=== PATIENT | male | born 1995 | race African-American/Black ===

== ENCOUNTER 2022-04-15 21:12 | Emergency (ER) | payer OTHER, SELFPAY ==
--- NOTE | ~2022-04-15 | XR_ITS ---
EXAMINATION: XR chest 2V DATE: 04/15/2022 21:37 INDICATION: Cough. Chest pain. TECHNIQUE: Frontal and lateral views of the chest were obtained. COMPARISON: None. FINDINGS: The chest demonstrates clear lungs without pneumonia, pleural effusion, or pneumothorax. Th e heart size is normal. IMPRESSION: 1. No acute cardiopulmonary disease. Reviewed, dictated and finalized at location A.
[2022-04-15 21:16] VITALS: BP 116/94; PULSE 95; RESP 16; TEMP 36.4; O2SAT 99
--- NOTE | 2022-04-15 21:19 | ECG_ITS ---
Measurements Intervals Russell Rate: 89 P: 55 MD: 149 QRS: 70 QRSD: 81 T: 6 QT: 329 QTc: 402 Interpretive Statements SINUS RHYTHM POSSIBLE RIGHT VENTRICULAR CONDUCTION DELAY [RSR (QR) IN V1/V2] EARLY REPOLARIZATION NO PREVIOUS ECG AVAILABLE FOR COMPARISON Electronically Signed On 04-16-2022 15:05:39 CDT by Stephani Whitlock M.D.
--- NOTE | 2022-04-15 22:20 | ED.SOB ---
HPI - SOB/Dyspnea General Chief Complaint: Shortness of Breath/Dyspnea Stated Complaint: coughing a lot Time Seen by Provider: 04/15/22 22:07 History of Present Illness HPI Narrative: 27-year-old male presents the emergency room for evaluation of a cough that has had for over 3 weeks. Patient states its a nonproductive cough and is worse at night. Patient was seen at the [facility] clinic 2 weeks ago was given cough syrup which alleviated his cough temporarily. Patient denies any shortness of breath, difficulty breathing or chest pain. Denies any wheezing. Related Data Allergies Allergy/AdvReac Type Severity Reaction Status Date / Time No Known Allergies Allergy Verified 04/15/22 21:13 Review of Systems Review of Systems: CONSTITUTIONAL: Denies fever, chills, or sweats. EYES: Denies visual changes, redness, or discharge. ENT: Denies rhinorrhea, congestion, sore throat, or otalgia. CARDIOVASCULAR: Denies chest pain, palpitations, or edema. RESPIRATORY: Reports cough GASTROINTESTINAL: Denies abdominal pain, nausea, vomiting, or diarrhea. GENITOURINARY: Denies dysuria or hematuria. SKIN: Denies rash or itching. MUSCULOSKELETAL: Denies back pain, joint pain, or myalgia. NEUROLOGIC: Denies headache, numbness, dizziness, or weakness. PSYCHIATRIC: Denies anxiety or depression. Exam Narrative: GENERAL: Well-appearing, well-nourished, no physical limitations, and in no acute distress. HEAD: Normocephalic, atraumatic. EYES: Conjunctivae normal, PERRLA and EOMI. ENT: External nose normal, Nares clear, no rhinorrhea or epistaxis. Mucous membranes moist. Oropharynx without tonsillar hypertrophy exudate or other lesions. External ears normal, bilateral TMs normal bilaterally NECK: Supple. No adenopathy or masses. No carotid bruits or JVD CHEST: Clear to auscultation. No respiratory distress. No wheezes rales or rhonchi. No tenderness. HEART: Regular rate and rhythm. No murmur heard. Normal peripheral pulses. EXTREMITIES: Normal range of motion. No edema. No clubbing or cyanosis SKIN: Warm, dry, no rash. No noted wounds NEURO: No focal deficits. Alert and oriented x3. MAEW. CN's II-XI intact bilaterally, normal gait PSYCH: Cooperative. Normal mood and affect. Course Vital Signs Vital signs: Vital Signs Temperature 36.4 C 04/15/22 21:16 Pulse Rate 95 04/15/22 21:16 Respiratory Rate 16 04/15/22 21:16 Blood Pressure 116/94 H 04/15/22 21:16 Pulse Oximetry 99 04/15/22 21:16 Oxygen Delivery Room Air 04/15/22 21:16 Temperature 36.4 C 04/15/22 21:16 Pulse Rate 95 04/15/22 21:16 Respiratory Rate 16 04/15/22 21:16 Blood Pressure 116/94 H 04/15/22 21:16 Pulse Oximetry 99 04/15/22 21:16 Oxygen Delivery Room Air 04/15/22 22:17 MDM - SOB/Dyspnea Imaging Data My impression: CXR: No active cardiopulmonary disease Discharge Plan Discharge Clinical Impression: Cough Patient Disposition: Home, Self-Care Condition: Stable Instructions: Antibiotic Form, Acute Cough (ED) Prescriptions: New promethazine-DM 6.25-15 mg/5 mL syrup 5 ml PO Q4-6H PRN (Reason: cough) Qty: 118 0RF albuterol sulfate 90 mcg/actuation HFA aerosol inhaler 2 puff inhalation QID Qty: 6.7 0RF Follow-up/Referrals: PHYSICIAN NOT ON STAFF,NONSTAFF [Primary Care Provider] - Time of Disposition: 22:23
== END 2022-04-15 22:39 | disposition home or self-care (01) ==
PROVIDERS: Emergency Provider Nurse Practitioner Family; PCP Family Medicine
DX: R05.9 Cough, unspecified (principal)
CPT/HCPCS: 71046; 93005; 99283

== ENCOUNTER 2023-11-05 18:57 | Emergency (ER) | payer OTHER, SELFPAY ==
[2023-11-05 19:10] VITALS: BP 148/83; PULSE 86; RESP 20; TEMP 36.8; O2SAT 98
[2023-11-05 20:59] LABS: Influenza A QL RT-PCR Negative (Negative); Influenza B QL RT-PCR Negative (Negative); RSV RNA, RT-PCR Negative (Negative); SARS-CoV-2 RNA PCR Negative (Negative)
--- NOTE | 2023-11-05 21:43 | ED.GENADULT ---
HPI - General Adult General Chief complaint: Upper Respiratory Infection Stated complaint: coughing Time Seen by Provider: 11/05/23 20:33 Source: patient Mode of arrival: ambulatory Limitations: no limitations History of Present Illness HPI narrative: This is a 28-year-old male who presents to the ED with chief complaint of chest tightness and cough for the past several weeks. Reports the cough has been persistent and dry. States he has chest tightness with the cough but does not have any chest pain. Denies shortness of breath, fevers or chills. He is mentally a bronchitis but does not seem to be getting much better. Denies any further complaints. Related Data Allergies Allergy/AdvReac Type Severity Reaction Status Date / Time No Known Allergies Allergy Verified 11/05/23 20:13 Review of Systems Review of Systems: All systems as dictated in HPI Exam Narrative: GENERAL: Well-appearing, well-nourished, and in no acute distress. HEAD: Normocephalic, atraumatic. EYES: PERRLA and EOMI. ENT: Nares clear, no rhinorrhea or epistaxis. Mucous membranes moist. Oropharynx without tonsillar hypertrophy exudate or other lesions. NECK: Supple. No adenopathy or masses. CHEST: No respiratory distress. Clear to auscultation. No wheezes rales or rhonchi HEART: Regular rate and rhythm. No murmur heard. Normal peripheral pulses. ABDOMEN: Soft, nontender, nondistended, normal active bowel sounds. MSK: Normal range of motion. No edema. SKIN: Warm, dry, no rash. NEURO: Alert and oriented x3. No focal deficits. PSYCH: Normal mood and affect. Course Vital Signs Vital signs: Vital Signs Temperature 98.3 F 11/05/23 19:10 Pulse Rate 86 11/05/23 19:10 Respiratory Rate 20 11/05/23 19:10 Blood Pressure 148/83 H 11/05/23 19:10 Pulse Oximetry 98 11/05/23 19:10 Oxygen Delivery Room Air 11/05/23 19:10 Temperature 98.3 F 11/05/23 19:10 Pulse Rate 77 11/05/23 21:55 Respiratory Rate 16 11/05/23 21:55 Blood Pressure 135/94 H 11/05/23 21:55 Pulse Oximetry 100 11/05/23 21:55 Oxygen Delivery Room Air 11/05/23 20:11 Medical Decision Making MDM Narrative Medical decision making narrative: This is a 28-year-old male presents to the ED with chief complaint cough and chest tightness the past 2 weeks. Vitals are normal. Exam is benign. Viral swabs are negative. Offered EKG and chest x-ray for the chest tightness but patient declines at this point. We have agreed to treat this as continued bronchitis. We will try another course of steroids and albuterol. Pt will be discharged in stable condition. Return precautions given and supportive measures discussed. Pt is understanding and agreeable with plan for discharge and follow-up with PCP. Vital Signs Vital Signs: Vital Signs Temperature 98.3 F 11/05/23 19:10 Pulse Rate 86 11/05/23 19:10 Respiratory Rate 20 11/05/23 19:10 Blood Pressure 148/83 H 11/05/23 19:10 Pulse Oximetry 98 11/05/23 19:10 Oxygen Delivery Room Air 11/05/23 19:10 Temperature 98.3 F 11/05/23 19:10 Pulse Rate 77 11/05/23 21:55 Respiratory Rate 16 11/05/23 21:55 Blood Pressure 135/94 H 11/05/23 21:55 Pulse Oximetry 100 11/05/23 21:55 Oxygen Delivery Room Air 11/05/23 20:11 Lab Data Labs: Lab Results 11/05/23 Range/Units 20:14 Influenza A (RT-PCR) Negative (Negative) Influenza B (RT-PCR) Negative (Negative) RSV (RT-PCR) Negative (Negative) SARS-CoV-2 RNA (RT-PCR) Negative (Negative) Discharge Plan Discharge Clinical Impression: Upper respiratory infection, Bronchitis Patient Disposition: Home, Self-Care Condition: Stable Instructions: Antibiotic Form Additional Instructions: Your exam today shows evidence of bronchitis. Please take albuterol and steroids as prescribed. Follow-up with primary care doctor. If you have any new or worsening symptoms please return to the ER for fu
[2023-11-05 21:55] VITALS: BP 135/94; PULSE 77; RESP 16; O2SAT 100
== END 2023-11-05 21:55 | disposition home or self-care (01) ==
PROVIDERS: Emergency Medicine; Emergency Provider Physician Assistant; PCP Family Medicine
DX: J40 Bronchitis, not specified as acute or chronic (principal); J06.9 Acute upper respiratory infection, unspecified; Z20.822 Contact with and (suspected) exposure to COVID-19
CPT/HCPCS: 87637; 99283

== ENCOUNTER 2025-02-12 18:20 | Emergency (ER) | payer OTHER, SELFPAY ==
[2025-02-12 18:24] VITALS: BP 147/86; PULSE 86; RESP 16; TEMP 36.9; O2SAT 100
--- OUTSIDE RECORDS SUMMARY | 2025-02-12 18:24 | XMS_ITS | Clinical Summary ---
Author Organization [facility] Address [address] [place] [address] Care Team Providers Care Build And Release Manager Name Role Phone Unknown, Notinfile Primary Care Provider Unavail able Allergies No known active allergies Medications dibucaine (NUPERCAINAL) 1 % ointment Apply topically 3 (three) times a day 30 g 2 Active naproxen (NAPROSYN) 500 mg tablet Take 1 tablet (500 mg total) by mouth 2 (two) times a day with meals 30 tablet 4 Active Immunizations Immunization Administration Dates Next Due DTP / HiB 04/30/1998, 5,09/28/1994,10/11,1993 Hep A, Ped Unspecified 04/16/2002,06/13/2001 Hep B, Adolescent or Pediatric 8,1993,1993,03/17 MMR 04/30/1998,06/16/1994 Meningococcal Polysaccharide (Menomune) 04/28/2005 OPV 04/30/1998, 5,1993,05/19 Tdap 04/17/2007 Varicella 04/17/2007,03/16/1995 Social History Tobacco Use Types Packs/Day Years Used Date Smoking Tobacco: Every Day Cigarettes Tobacco Cessation:Ready to Q uit: Not Asked; Counseling Given: Not Answered Alcohol Use Standard Drinks/Week Comments Yes 0 (1 standard drink = 0.6 oz pur e alcohol) socially Personal Safety Answer Date Recorded Have you ever been in or are you currently in a harmful physical or emotional relationship or is someone making you feel afraid or unsafe? 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 Gender Identity Not on file Sexual Orientation Not on file Obstetrics History Last Filed Vital Signs Vital Sign Reading Time Taken Comments Blood Pressure 131/81 02/26/2024 5:17 PM CDT Pulse 66 02/26/2024 5:17 PM CDT Temperature 36.7 C (98.1 F) 02/26/2024 5:17 PM CDT Respiratory Rate 16 02/26/2024 5:17 PM CDT Oxygen Saturation 100% 02/26/2024 5:17 PM CDT Inhaled Oxygen Concentration - - Weight 75.8 kg (167 lb 1.7 oz) 02/26/2024 5:17 P M CDT Height 180.3 cm (5' 11) 02/26/2024 5:17 PM CDT Body Mass Index 23.31 02/26/2024 5:17 PM CDT Plan of Treatment Health Maintenance Due Date Last Done Comments Depression Screening 1993 Hepatitis C Screening 1993 Regular Well Visit/Exam 18-64 2011 Pneumococcal vaccine <65 (1 of 2 - PCV) 2012 DTaP/Tdap/Td Vaccine (7 - Td or Tdap) 04/17/2017 04/17/2007, 04/30/1998, 05/19/1995, Additional history exists Influenza Vaccine (Season Ended) 2025 Hepatitis B Screening Completed 04/30/1998 , 1993, 1993, Additional history exists Varicella Vaccines Completed 04/17/2007, 03/16/1995 HPV Vaccines Aged Out No longer eligi ble based on patient's age to complete this topic Insurance [employer] [facility] CHOICE PLUS Care Teams Build And Release Manager Relationship Specialty Start Date End Date Unknown, Notinfile PCP - General 05/09/24
--- OUTSIDE RECORDS SUMMARY | 2025-02-12 18:24 | XMS_ITS | Referral Summary ---
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
--- OUTSIDE RECORDS SUMMARY | 2025-02-12 18:24 | XMS_ITS | Clinical Summary ---
Author Organization [facility] Address [address] [place] [address] Care Team Providers Care Leather Scrubber Name Role Phone Flavio Cleary MD Primary Care Provider [phone] Source Comments [facility],non-owned Affiliates and Associated Physician Practices is amultiple site organization consisting of ambulatory clinics and hospital sitesin [place], [place], [place] and [place]. This disclosure is being madepursuant to the Care Everywhere program and may not contain all information available regarding this patient. Last updated 18.[facility] Allergies No known active allergies Medications * Be aware that medications may not be up to date on this document. Alwaysverify current medications with the patient. docusate sodium (Colace) 100 MG capsule Take 1 (one) capsule by mouth once daily 30 capsule 2 3 Active phenylephrine-m ineral Oil-pet (Preparation H) 0.25-14-74.9 % ointment Insert into the rectum as needed for Hemorrhoids 28 g 2 3 Active Social History Tobacco Use Types Packs/Day Years Used Date Smoking Tobacco: Some Days Cigarettes Tobacco Cessation:Ready to Q uit: Not Asked; Counseling Given: Not Answered Alcohol Use Standard Drinks/Week Comments Yes 0 (1 standard drink = 0.6 oz pur e alcohol) Sex and Gender Information Value Date Recorded Sex Assigned at Not on file Legal Sex Male 6:46 PM LEARNING PROGRAM MANAGER Gender Identity Not on file Sexual Orientation Not on file Last Filed Vital Signs Vital Sign Reading Time Taken Comments Blood Pressure 128/76 09/14/2022 11:30 AM LEARNING PROGRAM MANAGER Pulse 73 09/14/2022 11:30 AM LEARNING PROGRAM MANAGER Temperature 36.6 C (97.9 F) 09/14/2022 11:30 AM LEARNING PROGRAM MANAGER Respiratory Rate 15 09/14/2022 11:30 AM LEARNING PROGRAM MANAGER Oxygen Saturation 98% 09/14/2022 11:30 AM LEARNING PROGRAM MANAGER Inhaled Oxygen Concentration - - Weight 68 kg (150 lb) 09/14/2022 11:30 AM LEARNING PROGRAM MANAGER Height 180.3 cm (5' 11) 09/14/2022 11:30 AM LEARNING PROGRAM MANAGER Body Mass Index 20.92 09/14/2022 11:30 AM LEARNING PROGRAM MANAGER Plan of Treatment Health Maintenance Due Date Last Done Comments HIV SCREENING 2008 HEPATITIS C SCREENING 03/13/2011 DTAP/TDAP/TD VACCINES (1 - Tdap) 2012 HEPATITIS B VACCINE (1 of 3 - 19+ 3-dose series) 2012 PNEUMOCOCCAL VACCINE (1 of 2 - PCV) 2012 COVID-19 VACCINE (1 - 2023-2 5 season) 2024 DEPRESSION SCREENING 08/27/2024 INFLUENZA VACCINE (Season Ended) 2025 ZOSTER VACCINE (1 of 2) 2043 HIB VACCINE Aged Out No longer eligi ble based on patient's age to complete this topic HPV VACCINE Aged Out No longer eligi ble based on patient's age to complete this topic MENINGOCOCCAL (Group B) VACC INE SHARED DECISION-MAKING Aged Out No longer eligibl e based on patient's age to complete this topic MENINGOCOCCAL GROUPS A/C/Y/W VACCINE Aged Out No longer eligible b ased on patient's age to complete this topic [place] [address] [place] [address] [facility] Care Teams Leather Scrubber Relationship Specialty Start Date End Date Flavio Cleary MD [address] [place] [address] PCP - General Pediatrics 09/14/22
--- NOTE | 2025-02-12 19:02 | ED_ITS ---
HPI - General Adult General Chief complaint: Urogenital-Male Stated complaint: I have a sore on my privates Time Seen by Provider: 02/12/25 18:29 History of Present Illness HPI narrative: This is a 29-year-old male presenting for sores on his genitals. Patient says that about a week ago he developed painful sores on the shaft of his penis. And scabbed over and have now improved. He says he is sexually active with 1 person. They intermittently use protection. He denies any history of STDs. No dysuria or penile discharge. No fevers chills nausea vomiting diarrhea. Related Data Allergies Allergy/AdvReac Type Severity Reaction Status Date / Time No Known Allergies Allergy Verified 11/05/23 20:13 Exam Narrative: APPEARANCE: No apparent distress. Head: atraumatic. EYES: EOMI, NOSE: Atraumatic NECK: Trachea midline RESPIRATORY: No increased rate of breathing CARDIOVASCULAR: RRR, ABDOMINAL: Non-distended : External genitalia showed several healed sores on right-sided patient's penile shaft no open ulcers, no testicular tenderness, no penile discharge MUSCULOSKELETAl: No obvious deformities NEURO: Alert. Moving 4/4 extremities SKIN:: Warm, dry. Normal color PSYCHIATRIC: Normal affect Course Vital Signs Vital signs: Vital Signs Temperature 98.5 F 02/12/25 18:24 Pulse Rate 86 02/12/25 18:24 Respiratory Rate 16 02/12/25 18:24 Blood Pressure 147/86 H 02/12/25 18:24 Pulse Oximetry 100 02/12/25 18:24 Oxygen Delivery Room Air 02/12/25 18:24 Temperature 98.5 F 02/12/25 18:24 Pulse Rate 86 02/12/25 18:24 Respiratory Rate 16 02/12/25 18:24 Blood Pressure 147/86 H 02/12/25 18:24 Pulse Oximetry 100 02/12/25 18:24 Oxygen Delivery Room Air 02/12/25 18:24 Medical Decision Making MDM Narrative Medical decision making narrative: -Course: 29-year-old male presenting with painful sores on his penis. Sores have already started to heal. Patient will be treated for herpes with valacyclovir. Will be given primary care follow-up. Patient requested additional STD testing he has been tested for HIV, syphilis, and gonorrhea, Trichomonas, and chlamydia. Patient educated on how to use the patient portal and will check his results tomorrow. -DDX includes but is not limited to: Herpes simplex virus, folliculitis, syphilis, [place] Vital Signs Vital Signs: Vital Signs Temperature 98.5 F 02/12/25 18:24 Pulse Rate 86 02/12/25 18:24 Respiratory Rate 16 02/12/25 18:24 Blood Pressure 147/86 H 02/12/25 18:24 Pulse Oximetry 100 02/12/25 18:24 Oxygen Delivery Room Air 02/12/25 18:24 Temperature 98.5 F 02/12/25 18:24 Pulse Rate 86 02/12/25 18:24 Respiratory Rate 16 02/12/25 18:24 Blood Pressure 147/86 H 02/12/25 18:24 Pulse Oximetry 100 02/12/25 18:24 Oxygen Delivery Room Air 02/12/25 18:24 Lab Data Labs: Lab Results 02/12/25 Range/Units 19:01 Urine Color Yellow (Yellow) Urine Appearance Clear (Clear) Urine pH 7.5 (5.0-9.0) Ur Specific [place] 1.014 (1.001-1.035) Urine Protein Negative (Negative) mg/dL Urine Glucose (UA) Negative (Negative) mg/dL Urine Ketones Negative (Negative) mg/dL Ur Blood (Man) Negative (Negative) Urine Nitrate Negative (Negative) Urine Bilirubin Negative (Negative) Urine Urobilinogen 1.0 (<2.0) mg/dL Leukocyte Esterase Rfl Negative (Negative) RUBIO/UL C. trachomatis (PCR) Pending HIV 1&2 Ag/Ab, 4th Gen Pending N. gonorrhoeae (PCR) Pending T. vaginalis (PCR) Pending Discharge Plan Discharge Clinical Impression: Genital HSV Patient Disposition: Home Condition: Stable Instructions: Antibiotic Form, Genital Herpes Infection (ED) Additional Instructions: You were seen in the emergency department for sores on your penis. This is likely herpes. Please take the valacyclovir twice a day for 7 days. Please follow-up with primary care physician listed below. You have been tested for additional STDs including HIV, syphilis, and gonorrhea, Trichomonas, and chlamydia. Please check the patient portal and if you are positive for any of these please return to ED for re-evaluation. Patient Language: Singaporean Prescriptions: New valacyclovir 1 gram tablet 1,000 mg PO Q12H Qty: 14 0RF No Action promethazine-DM 6.25-15 mg/5 mL syrup 5 ml PO Q4-6H PRN (Reason: cough) Qty: 118 0RF albuterol sulfate 90 mcg/actuation HFA aerosol inhaler 2 puff inhalation QID Qty: 6.7 0RF albuterol sulfate 90 mcg/actuation HFA aerosol inhaler 2 puff inhalation QID PRN (Reason: shortness of breath or wheezing) Qty: 6.7 0RF methylprednisolone [Medrol (Zeeshan)] 4 mg tablets,dose pack See Rx Instructions .ROUTE .COMPLEX Qty: 21 0RF Rx Instructions: for 6 days Follow-up/Referrals: Katherine Lezama DO [Primary Care Provider] - 1 Week (Genital sores )
[2025-02-12 19:11] LABS: Add Urine Microscopic? NO; Appearance Urine Clear (Clear); Bilirubin Urine Negative (Negative); Blood Urine Negative (Negative); Color Urine Yellow (Yellow); Glucose Urine UA Negative (Negative); Ketones Urine Negative (Negative); Leukocyte Esterase Ur Negative LEU/UL (Negative); Nitrate Urine Negative (Negative); Protein Urine Negative (Negative); Specific Grav Ur 1.014 (1.001-1.035); pH Urine 7.5 (5.0-9.0)
[2025-02-12] MEDS: valACYclovir HCL 500 MG TABLET 1000 MG PO (19:14)
[2025-02-12 19:46] LABS: Syphilis IgG/IgM Antibody Non-Reactive (Nonreactive)
[2025-02-12 20:15] LABS: Trichomonas Vag PCR NOT DETECTED (NOT DETECTE)
[2025-02-12 20:38] LABS: Chlamydia trachomatis NOT DETECTED (NOT DETECTE); Neisseria gonorrhoeae PCR NOT DETECTED (NOT DETECTE)
== END 2025-02-12 20:04 | disposition home or self-care (01) ==
PROVIDERS: Emergency Provider Emergency Medicine; PCP Family Medicine
DX: A60.00 Herpesviral infection of urogenital system, unspecified (principal); Z11.3 Encounter for screening for infections with a predominantly sexual mode of transmission
CPT/HCPCS: 36415; 81003; 86593; 87389; 87491; 87591; 87661; 99283; A9270